=== PATIENT | male | born 1955 | race Caucasian/White ===

== ENCOUNTER 2018-08-02 18:03 | Emergency (ER) | payer OTHER ==
[2018-08-02] MEDS ORDERED: Sodium Chloride 0.9% 10 ML Syringe FLUSH PRN (18:24)
[2018-08-02] MEDS ORDERED: Hyoscyamine 0.125 MG Tab.SL SL ONE (18:49)
--- NOTE | 2018-08-02 19:00 | EDM.PDOC ---
ED HPI GENERAL MEDICAL PROBLEM - General Chief Complaint: Abdominal Pain Stated Complaint: LOW ABD PAIN Time Seen by Provider: 08/02/18 18:22 Source of Information: Reports: Patient History Limitations: Reports: No Limitations - History of Present Illness INITIAL COMMENTS - FREE TEXT/NARRATIVE: 63 y/o male presents to ER with cc mid upper abdominal pain radiating into lower abdomen that started earlier this afternoon. He states became nauseated with no emesis. He denies fever or chills. He has a history of Type II diabetes, HTN and stage 0 leukemia. He denies any diarrhea or constipation. He reports having similar pain but not this intense. He is from [facility] and is driving to [place]. He is accompanied by his . Onset: Today Onset Date: 08/02/18 Onset Time: 12:00 Duration: Getting Worse Location: Reports: Abdomen Quality: Reports: Ache Severity: Mild Improves with: Reports: None Worsens with: Reports: None Associated Symptoms: Reports: Nausea/Vomiting. Denies: Chest Pain, Cough, Diaphoresis, Fever/Chills, Shortness of Breath Left Abdomen Pain Score (Numeric/FACES): 6 - Related Data Allergies Allergy/AdvReac Type Severity Reaction Status Date / Time No Known Allergies Allergy Verified 08/02/18 18:24 Home Meds: Home Meds Cholecalciferol (Vitamin D3) [Vitamin D3] 2,000 unit PO DAILY 08/02/18 [History] Lisinopril/Hydrochlorothiazide [Lisinopril-Hctz 20-25 mg Tab] 1 tab PO DAILY [History] Pravastatin [Pravachol] 10 mg PO BEDTIME 08/02/18 [History] Ranitidine HCl [Zantac] 300 mg PO ASDIRECTED 08/02/18 [History] glipiZIDE [Glucotrol] 5 mg PO DAILY 08/02/18 [History] Past Medical History Cardiovascular History: Reports: High Cholesterol, Hypertension Gastrointestinal History: Reports: GERD Endocrine/Metabolic History: Reports: Diabetes, Type II Social & Family History - Tobacco Use Smoking Status *Q: Never Smoker - Caffeine Use Caffeine Use: Reports: Coffee, Tea - Recreational Drug Use Recreational Drug Use: No ED ROS GENERAL - Review of Systems Review Of Systems: See Below Constitutional: Denies: Fever, Chills HEENT: Reports: No Symptoms Respiratory: Denies: Shortness of Breath Cardiovascular: Denies: Chest Pain Endocrine: Reports: No Symptoms GI/Abdominal: Reports: Abdominal Pain, Nausea. Denies: Constipation, Diarrhea, Decreased Appetite, Difficulty Swallowing, Vomiting : Reports: No Symptoms Musculoskeletal: Reports: No Symptoms Skin: Reports: No Symptoms Neurological: Reports: No Symptoms Psychiatric: Reports: No Symptoms Hematologic/Lymphatic: Reports: Other (history of stage 0 leukemia diagnosis 2017) ED EXAM, GI/ABD - Physical Exam Exam: See Below Exam Limited By: No Limitations General Appearance: Alert, WD/WN, No Apparent Distress Throat/Mouth: Normal Inspection, Normal Lips, Normal Teeth, Normal Gums, Normal Oropharynx, Normal Voice, No Airway Compromise Head: Atraumatic, Normocephalic Neck: Normal Inspection, Supple, Non-Tender, Full Range of Motion Respiratory/Chest: No Respiratory Distress, Lungs Clear, Normal Breath Sounds, No Accessory Muscle Use, Chest Non-Tender Cardiovascular: Normal Peripheral Pulses, Regular Rate, Rhythm, No Edema, No Gallop, No JVD, No Murmur, No Rub GI/Abdominal Exam: Normal Bowel Sounds, Soft, No Organomegaly, No Distention, No Abnormal Bruit, No Mass, Pelvis Stable, Tender. No: Guarding, Rigid, Rebound , Abnormal Bowel Sounds, Mass, Splenomegaly Back Exam: Normal Inspection, Full Range of Motion Extremities: Normal Inspection, Normal Range of Motion, Non-Tender, No Pedal Edema, Normal Capillary Refill Neurological: Alert, Oriented, CN II-XII Intact, Normal Cognition, Normal Gait Psychiatric: Normal Affect, Normal Mood Skin Exam: Warm, Dry, Intact, Normal Color, No Rash Lymphatic: No Adenopathy Course - Vital Signs Last Recorded V/S: Last Vital Signs Temp 96.3 F 08/02/18 18:27 Pulse 97 08/02/18 18:27 Resp 20 08/02/18 18:27 BP 125/75 08/02/18 18:27 Pulse Ox 95 08/02/18 18:27 - Orders/Labs/Meds Orders: Active Orders 24 hr Category Date Time Status Abdomen Pelvis wo Cont [CT] Stat Exams 08/02/18 18:48 Taken SMEARS TO PATH (SLIDES ONLY) [REF] Routine Lab 08/02/18 18:46 Received URINALYSIS W/O MICROSCOPIC [UA W/O MICROSCOPIC] [URIN] Lab 08/02/18 18:24 Ordered Stat WBC DIFFERENTIAL, MANUAL [REF] Routine Lab 08/02/18 18:46 Received Sodium Chloride 0.9% [Normal Saline] 1,000 ml Med 08/02/18 19:45 Active IV ASDIRECTED Sodium Chloride 0.9% [Saline Flush] Med 08/02/18 18:24 Active 10 ml FLUSH ASDIRECTED PRN Saline Lock Insert [OM.PC] Routine Oth 08/02/18 18:24 Ordered Medication Orders Sodium Chloride (Normal Saline) 1,000 mls @ 999 mls/hr IV ASDIRECTED KARINA Last Admin: 08/02/18 19:49 Dose: 999 mls/hr Sodium Chloride (Saline Flush) 10 ml FLUSH ASDIRECTED PRN PRN Reason: Keep Vein Open Last Admin: 08/02/18 19:17 Dose: 10 ml Labs: Laboratory Tests 08/02/18 08/02/18 08/02/18 Range/Units 18:46 18:46 19:19 WBC 87.07 H* (4.23-9.07) K/mm3 RBC 4.44 L (4.63-6.08) M/mm3 Hgb 13.9 (13.7-17.5) gm/L Hct 43.6 (40.1-51.0) % MCV 98.2 H (79.0-92.2) fl MCH 31.3 (25.7-32.2) pg MCHC 31.9 L (32.2-35.5) g/dl RDW Std Deviation 47.1 H (35.1-43.9) fL Plt Count 278 (163-337) K/mm3 MPV 9.6 (9.4-12.3) fl Neut % (Auto) 14.2 L (34.0-67.9) % Lymph % (Auto) 82.2 H (21.8-53.1) % [place] % (Auto) 2.9 L (5.3-12.2) % Eos % (Auto) 0 L (0.8-7.0) Baso % (Auto) 0.3 (0.1-1.2) % Neut # (Auto) 12.27 H (1.78-5.38) K/mm3 Lymph # (Auto) 71.59 H (1.32-3.57) K/mm3 [place] # (Auto) 2.54 H (0.30-0.82) K/mm3 Eos # (Auto) 0.04 (0.04-0.54) K/mm3 Baso # (Auto) 0.26 H (0.01-0.08) K/mm3 Manual Slide Review Abnormal smear Percent Retic 1.04 (0.51-1.81) % Sodium 137 (136-145) mEq/L Potassium 4.1 (3.5-5.1) mEq/L Chloride 102 (98-107) mEq/L Carbon Dioxide 27 (21-32) mEq/L Anion Gap 12.1 (5-15) BUN 27 H (7-18) mg/dL Creatinine 1.8 H (0.7-1.3) mg/dL Est Cr Clr Drug Dosing 48.84 mL/min Estimated GFR (MDRD) 38 (>60) mL/min BUN/Creatinine Ratio 15.0 (14-18) Glucose 309 H (80-115) mg/dL Lactic Acid 1.6 (0.4-2.0) mmol/L Calcium 9.0 (8.5-10.1) mg/dL Total Bilirubin 0.2 (0.2-1.0) mg/dL AST 19 (15-37) U/L ALT 33 (16-63) U/L Alkaline Phosphatase 121 H (46-116) U/L Total Protein 6.7 (6.4-8.2) g/dl Albumin 3.6 (3.4-5.0) g/dl Globulin 3.1 gm/dL Albumin/Globulin Ratio 1.2 (1-2) Lipase 7724 H (73-393) U/L Meds: Medications Generic Name Dose Route Start Last Admin Trade Name Freq PRN Reason Stop Dose Admin Sodium Chloride 1,000 mls @ 999 mls/hr 08/02/18 19:45 08/02/18 19:49 Normal Saline IV 999 mls/hr ASDIRECTED KARINA Administration Sodium Chloride 10 ml 08/02/18 18:24 08/02/18 19:17 Saline Flush FLUSH 10 ml ASDIRECTED PRN Administration Keep Vein Open Discontinued Medications Generic Name Dose Route Start Last Admin Trade Name Freq PRN Reason Stop Dose Admin Hyoscyamine 0.125 mg 08/02/18 18:49 08/02/18 18:59 Hyomax-Sl SL 08/02/18 18:50 0.125 mg ONETIME ONE Administration - Re-Assessments/Exams Free Text/Narrative Re-Assessment/Exam: 08/02/18 20:56 WBC 87.07 (history of leukemia) RBC 4.44 H & H 13.9/43.6 Na + 136 K T 4.1 chl 102 co2 27 bun 27 creatine 1.8 glucose [address] revealed small amount of peripancreatic edema suggesting pancreatitis. lactic acid 1.6 GTT 81. 08/02/18 21:[address] Schulte who feels the patient would benefit going to [place] for evaluation and treatment of his pancreatitis due to his comorbidities. I discussed finding with patient and his . They are considering transfer at this time. 08/02/18 22:[address] Berger and she accepted the patient. His will drive him to [place] since there is no means of transportation at this time. I will medicate with Morphine and Zofran for his abdominal pain. He verbalized understanding and is comfortable with plan for discharge to [facility]. Departure - Departure Time of Disposition: 22:18 Disposition: DC/Tfer to Acute Hospital 02 Condition: Good Clinical Impression: Pancreatitis Qualifiers: Chronicity: acute Pancreatitis type: unspecified pancreatitis type Acute pancreatitis complication: unspecified Qualified Code(s): K85.90 - Acute pancreatitis without necrosis or infection, unspecified - Discharge Information *PRESCRIPTION DRUG MONITORING PROGRAM REVIEWED*: Not Applicable *COPY OF PRESCRIPTION DRUG MONITORING REPORT IN PATIENT SUJEY: Not Applicable Referrals: PCP,Not In Area [Primary Care Provider] - Forms: ED Department Discharge - My Orders Last 24 Hours: My Active Orders 08/02/18 18:24 URINALYSIS W/O MICROSCOPIC [UA W/O MICROSCOPIC] [URIN] Stat Sodium Chloride 0.9% [Saline Flush] 10 ml FLUSH ASDIRECTED PRN Saline Lock Insert [OM.PC] Routine 08/02/18 18:46 SMEARS TO PATH (SLIDES ONLY) [REF] Routine WBC DIFFERENTIAL, MANUAL [REF] Routine 08/02/18 18:48 Abdomen Pelvis wo Cont [CT] Stat 08/02/18 19:45 Sodium Chloride 0.9% [Normal Saline] 1,000 ml IV ASDIRECTED - Assessment/Plan Last 24 Hours: My Active Orders 08/02/18 18:24 URINALYSIS W/O MICROSCOPIC [UA W/O MICROSCOPIC] [URIN] Stat Sodium Chloride 0.9% [Saline Flush] 10 ml FLUSH ASDIRECTED PRN Saline Lock Insert [OM.PC] Routine 08/02/18 18:46 SMEARS TO PATH (SLIDES ONLY) [REF] Routine WBC DIFFERENTIAL, MANUAL [REF] Routine 08/02/18 18:48 Abdomen Pelvis wo Cont [CT] Stat 08/02/18 19:45 Sodium Chloride 0.9% [Normal Saline] 1,000 ml IV ASDIRECTED
[2018-08-02] MEDS ORDERED: Sodium Chloride 0.9% 1,000 ML IV SCH (19:45)
[2018-08-02] MEDS: Ondansetron 4 MG/2 ML SDV IVPUSH ONE ×2 (22:17→22:18)
--- NOTE | 2018-08-05 08:30 | CT ---
CT abdomen and pelvis Technique: Multiple axial sections were obtained from above the dome of the diaphragm inferiorly through the pubic symphysis. Intravenous contrast was not utilized. Oral contrast has been given. Comparison: No prior abdominal imaging. Findings: Liver shows diffuse fatty infiltration. Visualized lung bases show mild areas of fibrosis and scarring. Spleen appears within normal limits in size. Gallbladder contains no calcified gallstones. Adrenal glands show no nodule. Kidneys show no abnormal calcifications or ureteral dilatation. Cyst is noted off the anterior left kidney measuring 3.0 cm in size. Inflammatory change is noted off the body and tail of the pancreas which is suspicious for pancreatitis. Aorta shows no aneurysm with atherosclerotic calcification. No retroperitoneal adenopathy or mesenteric abnormalities are seen. No pelvic mass or adenopathy is seen. No free fluid is seen. Bone window settings were reviewed show scattered degenerative change within the spine. Impression: 1. Inflammatory change around the body and tail of the pancreas suspicious for pancreatitis. 2. Fatty infiltration within the liver and other incidental findings. Diagnostic code #3 I agree with preliminary report from ad, finalized on 08/02/18, 9:32 PM Central Time
== END 2018-08-02 22:30 ==
LOC: JD.ED 18:03
DX: K85.90 Acute pancreatitis without necrosis or infection, unspecified (principal); E78.00 Pure hypercholesterolemia, unspecified; I10 Essential (primary) hypertension; E11.9 Type 2 diabetes mellitus without complications; Z79.899 Other long term (current) drug therapy
CPT/HCPCS: 74176; 80053; 83605; 83690; 85025; 85045; 96361; 96374; 96375; 99285; A9270; J2270; J2405; J7040